=== PATIENT | male | born 1930 | race Caucasian/White ===

== ENCOUNTER 2017-06-04 09:14 | Day surgery (SDC) | payer MEDICARE, OTHER ==
[2017-06-04] VITALS (13 sets, daily range): BP systolic 109–146; BP diastolic 60–83; PULSE 51–66; TEMP 97.9
[~2017-06-04] VITALS: Ht 167.6 cm; Wt 85.4 kg
[~2017-06-04 09:14] MED LIST: APRESOLINE 25MG25 MG PO; COUMADIN 5MG5 MG/TAB PO; ELIQUIS 2.5 PO; JANUVIA50 MG PO; LASIX 20MG TABL20 MG PO; LIPITOR 10MG10 MG PO; NATURAL CALCIUM PO; PACERONE400 MG PO; ZOCOR 20MG20 MG; ZYLOPRIM 100MG100 MG PO
[2017-06-04 10:28] LABS: INR 1.2 (0.8-3.0); PROTHROMBIN TIME 13.6 SECONDS (9.7-12.8)
[2017-06-04 11:00] LABS: POTASSIUM 4.5 mmol/L (3.4-5.0)
[2017-06-04 11:35] LABS: THYROID STIMULATING HORMONE 2.2 uIU/mL (0.465-4.680)
== END 2017-06-04 16:11 | disposition home or self-care (01) ==
LOC: COL.CAR 09:14
PROVIDERS: Internal Medicine Cardiovascular Disease
DX: I48.1 Persistent atrial fibrillation (principal); I08.0 Rheumatic disorders of both mitral and aortic valves; Z79.01 Long term (current) use of anticoagulants
CPT/HCPCS: J2250; J3010; J7030